=== PATIENT | female | born 1970 | race Caucasian/White ===

== ENCOUNTER → 2023-11-10 15:54 | Outpatient (REF) | payer OTHER, SELFPAY | LOC: WDC 15:54 | PROVIDERS: ATTENDING PHYSICIAN Nurse Practitioner Family; FAMILY PHYSICIAN Family Medicine | DX: Z12.31 Encounter for screening mammogram for malignant neoplasm of breast (principal) | CPT/HCPCS: 77063; 77067 ==

== ENCOUNTER 2024-03-30 03:37 | Emergency (ER) | payer OTHER, SELFPAY ==
--- NOTE | 2024-03-30 03:42 | ED.GENMED ---
History of Present Illness
General
Chief Complaint: Medication Reaction
Source: patient and ambulance crew
Exam Limitations: none
Time Seen by Provider: 03/30/24 03:38
Nursing documentation reviewed up to this point in time: agreed with
History of Present Illness
History of Present Illness:
This a pleasant 54-year-old female presents emerged department with nausea vomiting diarrhea that has been present for the last few days. She recently started Zepbound and had symptoms shortly thereafter. She denies fever, chills, chest pain, or
shortness of breath.
Vital signs are stable. Patient not hypoxic
Nursing note reviewed. I agree with nursing documentation up to this point in time.
Home Meds and allergies reviewed.
NUMBER AND COMPLEXITY OF PROBLEMS ADDRESSED AT THE ENCOUNTER
� Chronic conditions affecting care: Von Willebrand disease, asthma, GERD, migraines, hypertension, colitis
� Acute Exacerbation and/or Progression of Chronic Illness: None
� Differential Diagnosis includes: Zepbound reaction, normal side effects to Zepbound, colitis, bowel obstruction
AMOUNT AND/OR COMPLEXITY OF DATA TO BE REVIEWED AND ANALYZED
I performed an independent evaluation of the following and my interpretation is:
EKG:
Pulse Ox: Not Hypoxic
Promotions Executive: Sinus Rhythm
CT:
X-rays:
Ultrasound:
Laboratory Studies:
Other:
Review of other/old records:
Clinical information was obtained by an independent historian:
Prescriptions/Medications Considered but not given:
Further testing considered but not performed:
RISK OF COMPLICATIONS AND/OR MORBIDITY OR MORTALITY OF PATIENT MANAGEMENT
Social determinants of health affecting care: Good Social Support
Discussion with other providers:
Escalation of care including admission/observation vs risk of discharge considered: After being observed in the emergency department, patient is stable for discharge.
CRITICAL CARE NOTE:
Total Time (exclusive of procedures):
Update:
Past History
Past History
ED Past Medical History: GERD, HTN, Other (Migraine), Other (Remote history of von Willebrand's disease but proven to be negative when retested.) and Other (Hospitalized January 2008 for igmoid colitis associated with prior antibiotic use.)
ED Past Surgical History: Gynecological and Tonsilectomy
Social History
Tobacco: Non-smoker
Personal:
Family History
Family History: Other (leukemia, CHF)
Review of Systems
Review of Systems
Allergies reviewed?: Yes
All Other Systems: ROS reviewed and negative except as documented in HPI and ROS
ABD/GI: Reports nausea, vomiting and diarrhea; Denies constipated or anorexia
Phy Exam
General Physical Exam
General Presentation: mild distress
General Skin: warm and dry
General Habitus: normal
General Mental: alert
General Hydration: appears well hydrated
ENT Exam
ENT Exam: EOMI, pharynx normal, neck supple and normocephalic
Eye Exam
Eye Exam: PERRL, cornea clear and conjunctiva normal
Cardiovascular Exam
Cardiovascular Exam: regular rate/rhythm, no edema, no murmur and normal peripheral pulses
Pulmonary Exam
Pulmonary Exam: lungs clear, no respiratory distress, no rales, no crackles, no rhonchi, no stridor, no wheezing and no cough
Gastrointestinal Exam
Gastrointestinal Exam: normal bowel sounds, non tender, soft, no organomegaly, no pulsatile mass and non distended
Neurological Exam
Neurological Exam: alert, oriented x3, no motor deficits and speech normal
Musculoskeletal Exam
Musculoskeletal Exam: full ROM and no edema
Skin Exam
Skin Exam: normal color, warm/dry, no rash and no petechia
Psychiatric Exam
Psychiatric Exam: normal mood/affect
Course
Orders/Labs/Results
Orders:
Orders
03/30/24 03:39
0.9% Sodium Chloride 1000 ml [Nss] 1,000 ml IV BOLUS
Ondansetron Injectable [Zofran] 4 mg IV NOW STA
03/30/24 04:16
Complete Blood Count/With Diff Urgent
Comprehensive Metabolic Panel Urgent
Lactic Acid Urgent
Lipase Urgent
PTT Urgent
Prothrombin Time Urgent
Troponin I Urgent
03/30/24 04:37
Urinalysis Reflex To Culture Urgent
Date Specimen was Collected: 03/30/24
Time Specimen was Collected: 04:36
03/30/24 04:53
CT Abd/pelvis W Iv Cont Urgent
Comment:
Reason For Exam: upper abd pain
03/30/24 06:17
0.9% Sodium Chloride 1000 ml [Nss] 1,000 ml IV BOLUS
Ibuprofen [Motrin] 600 mg PO NOW STA
Ondansetron Injectable [Zofran] 4 mg IV NOW STA
Abnormal Lab Results
03/30/24
04:16
MCHC 32.7 L g/dL
(33.0-37.0)
Absolute Monos (auto) 0.8 H 10^3/uL
(0.1-0.6)
Monocytes % 11.2 H %
(1.7-9.3)
AST 112 H U/L
(14-36)
ALT 138 H U/L
(0-35)
03/30/24 04:16
03/30/24 04:16
Vital Signs
Initial and Last Documented VS:
Initial Vital Signs
Temp Pulse Resp BP Pulse Ox
97.3 F 68 14 122/61 96
03/30/24 03:43 03/30/24 03:43 03/30/24 03:43 03/30/24 03:43 03/30/24 03:43
Last Documented Vital Signs
Temp Pulse Resp BP Pulse Ox
97.3 F 69 15 115/72 96
03/30/24 03:43 03/30/24 03:43 03/30/24 03:43 03/30/24 04:30 03/30/24 04:30
*Critical Care Note
Total Time (30-74mins, 75-104mins- exclusive of procedures): Not Applicable
Update Note
Update Note:
CT abdomen and pelvis with IV contrast
IMPRESSION:
Appendix is normal. No bowel obstruction or diverticulitis. Stomach decompressed.
No cholecystitis or pancreatitis. No obstructing renal stone. Bladder wall thickening; correlate with urinalysis.
Finalized at 6:07 AM EST
Back in to see the patient. She still has nausea. She will get another liter of fluids with nausea medicine and Motrin
ED Attending Note
-
Portions of this chart may have been created with voice recognition software.� Occasional wrong word or��sound alike� substitutions may have occurred due to the inherent limitations of voice recognition software.
Discharge Plan
Departure
Discharge Problem:
Nausea & vomiting, Medication side effect
Instructions: Adverse Drug Reactions, Adult ED, Nausea and vomiting in adults
Prescriptions:
No Action
amlodipine 2.5 MG tablet
2.5 mg PO DAILY
sertraline 25 MG tablet
50 mg PO DAILY
calcium [Hi-Cj] 250 MG tablet
3 tab PO BID
omeprazole 20 MG capsule,delayed release(DR/EC)
20 mg PO DAILY
geriatric multivitamin-min 1 CAP capsule
1 cap PO DAILY
cetirizine 10 MG tablet
10 mg PO DAILY
fluticasone propionate 1 SPRAY spray,suspension
1 spray intranasal DAILY
ondansetron 4 MG tablet,disintegrating
4 mg PO TIDPRN PRN (Reason: NAUSEA) Qty: 15 0RF
Referrals:
UNKNOWN - PT NOT,INTERVIEWE [Family Provider] -
Interventions
Interventions:
*Risk Screen - Suicide Last Done: 03/30/24 03:43
*General Assessment Last Done: 03/30/24 03:43
*Neglect/Abuse Screening Last Done: 03/30/24 03:43
ED- Fall Risk Assessment Last Done: 03/30/24 03:55
*ED COVID-19 Vaccine History Last Done: 03/30/24 03:55
ED-Skin Assessment Last Done: 03/30/24 03:55
ED- Pulmonary Assessment Last Done: 03/30/24 03:55
ED-EENT Assessment Last Done: 03/30/24 03:55
Discharge Date and Time
Print Language: SCOTTISH
[2024-03-30 03:43] VITALS: BP 122/61
[2024-03-30 03:52] VITALS: BP 115/70
[2024-03-30 03:55] VITALS: BMI 39.6
[2024-03-30 04:00] VITALS: BP 116/74
[2024-03-30 04:12] LABS: Glucose - Point of Care 98 mg/dl (70-99)
[2024-03-30] MEDS: NSS 1000 IV ×2 (04:18→06:30)
[2024-03-30] MEDS: ZOFRAN 4 MG IV ×2 (04:25→06:31)
[2024-03-30 04:30] VITALS: BP 115/72
[2024-03-30 04:33] LABS: % Basophils 0.9 % (0-2); % Eosinophils 4.3 % (0-6); % Immature Granulocytes 0.3 % (0-0.5); % Lymphocytes 29.9 % (20.5-51.1); % Monocytes 11.2 % (1.7-9.3); % Neutrophils 53.4 % (42.2-75.2); Absolute Basophils 0.1 10^3/uL (0-0.2); Absolute Eosinophils 0.3 10^3/uL (0-0.7); Absolute Lymphocytes 2.2 10^3/uL (1.2-3.4); Absolute Monocytes 0.8 10^3/uL (0.1-0.6); Hemoglobin 14.4 g/dL (12.0-16.0); Mean Corp Hgb Conc. 32.7 g/dL (33.0-37.0); Mean Corpuscular Hgb 28.9 pg (27.0-31.0); Mean Corpuscular Volume 88.4 fL (81.0-99.0); Mean Platelet Volume 10.2 fL (7.4-10.4); Nucleated Red Blood Cells % 0 %; Platelet Count 228 10^3/uL (130-400); Red Blood Cell Count 4.98 10^6/uL (4.20-5.40); White Blood Cell Count 7.4 10^3/uL (4.8-10.8)
[2024-03-30 04:44] LABS: Lactic Acid 1.6 mmol/L (0.7-2.0)
[2024-03-30 04:45] LABS: ALT (SGPT) 138 U/L (0-35); AST (SGOT) 112 U/L (14-36); Albumin 4.9 g/dl (3.5-5.0); Alkaline Phosphatase 76 U/L (38-126); Blood Urea Nitrogen 13 mg/dl (7-17); Calcium 9.9 mg/dl (8.4-10.2); Carbon Dioxide 22 mmol/L (22-30); Chloride 106 mmol/L (98-107); Estimated Creatinine Clearance 76 ml/min; Glucose 99 mg/dl (70-99); Lipase 55 U/L (23-300); Potassium 4.2 mmol/L (3.5-5.1); Sodium 141 mmol/L (135-145); Total Bilirubin 0.6 mg/dl (0.2-1.3); Total Protein 8.1 g/dl (6.3-8.2); eGFR > 60.00
[2024-03-30 04:47] LABS: INR 1.04; PT 14.1 Sec (11.4-14.6)
[2024-03-30 04:48] LABS: APTT 33.6 Sec (23.4-35.0)
[2024-03-30 04:55] LABS: Troponin I < 0.012 ng/ml
[2024-03-30 05:00] LABS: Urine Albumin Negative (Neg - Trace); Urine Bilirubin Negative (Negative); Urine Character Clear (Clear); Urine Color Yellow; Urine Glucose Negative (Negative); Urine Ketone Negative (Negative); Urine Leukocyte Negative (Negative); Urine Nitrite Negative (Negative); Urine Occult Blood Negative (Negative); Urine Specific Gravity 1.015 (<1.030); Urine Urobilinogen Negative (Neg - 1+)
[2024-03-30] MEDS: MOTRIN 600 MG PO (06:31)
[2024-03-30 08:00] VITALS: BP 124/77
== END 2024-03-30 08:02 | disposition home or self-care (01) ==
LOC: EMR 03:37
PROVIDERS: EMERGENCY PHYSICIAN Student in an Organized Health Care Education/Training Program
DX: R11.2 Nausea with vomiting, unspecified (principal); R19.7 Diarrhea, unspecified; T50.995A Adverse effect of other drugs, medicaments and biological substances, initial encounter; D68.00 Von Willebrand disease, unspecified; J45.909 Unspecified asthma, uncomplicated; K21.9 Gastro-esophageal reflux disease without esophagitis; G43.909 Migraine, unspecified, not intractable, without status migrainosus; I10 Essential (primary) hypertension
CPT/HCPCS: 99285; 96374; 96361 ×2; 96376; 74177; 80053; 81003; 82962; 83605; 83690; 84484; 85025; 85610; 85730; Q9967

== ENCOUNTER → 2024-06-27 11:09 | Outpatient (REF) | payer OTHER, SELFPAY | LOC: HWRAD 11:09 | PROVIDERS: ATTENDING PHYSICIAN Internal Medicine; FAMILY PHYSICIAN Internal Medicine Geriatric Medicine | DX: R19.8 Other specified symptoms and signs involving the digestive system and abdomen (principal) | CPT/HCPCS: 74019 ==

== ENCOUNTER → 2024-11-19 18:36 | Outpatient (REF) | payer OTHER, SELFPAY | LOC: WDC 18:36 | PROVIDERS: ATTENDING PHYSICIAN Obstetrics & Gynecology | DX: Z12.31 Encounter for screening mammogram for malignant neoplasm of breast (principal) | CPT/HCPCS: 77063; 77067 ==

== ENCOUNTER → 2024-11-26 08:22 | Outpatient (REF) | payer OTHER, SELFPAY | LOC: WDC 08:22 | PROVIDERS: ATTENDING PHYSICIAN Obstetrics & Gynecology; FAMILY PHYSICIAN Internal Medicine Geriatric Medicine | DX: R92.8 Other abnormal and inconclusive findings on diagnostic imaging of breast (principal) | CPT/HCPCS: 76642 ==